=== PATIENT | female | born 1930 | race Caucasian/White ===

== ENCOUNTER → 2018-01-06 | Outpatient (CLI) | payer OTHER | LOC: HYPER 09:02 | DX: L89.153 Pressure ulcer of sacral region, stage 3 (principal); L89.622 Pressure ulcer of left heel, stage 2; E03.9 Hypothyroidism, unspecified; E78.00 Pure hypercholesterolemia, unspecified; I10 Essential (primary) hypertension; K59.00 Constipation, unspecified; G89.11 Acute pain due to trauma; G90.09 Other idiopathic peripheral autonomic neuropathy; L84 Corns and callosities; M06.9 Rheumatoid arthritis, unspecified; N39.0 Urinary tract infection, site not specified; F03.90 Unspecified dementia, unspecified severity, without behavioral disturbance, psychotic disturbance, mood disturbance, and anxiety ==

== ENCOUNTER → 2018-01-20 | Outpatient (CLI) | payer OTHER | LOC: HYPER 06:51 | DX: L89.153 Pressure ulcer of sacral region, stage 3 (principal); L89.622 Pressure ulcer of left heel, stage 2; L84 Corns and callosities; E03.9 Hypothyroidism, unspecified; E78.00 Pure hypercholesterolemia, unspecified; G90.09 Other idiopathic peripheral autonomic neuropathy; G89.11 Acute pain due to trauma; I10 Essential (primary) hypertension; M06.9 Rheumatoid arthritis, unspecified; N39.0 Urinary tract infection, site not specified; F03.90 Unspecified dementia, unspecified severity, without behavioral disturbance, psychotic disturbance, mood disturbance, and anxiety ==

== ENCOUNTER → 2018-03-03 | Outpatient (CLI) | payer OTHER | LOC: HYPER 06:56 | DX: L89.153 Pressure ulcer of sacral region, stage 3 (principal); I10 Essential (primary) hypertension; L89.622 Pressure ulcer of left heel, stage 2; N39.0 Urinary tract infection, site not specified; L84 Corns and callosities; E78.00 Pure hypercholesterolemia, unspecified; E03.9 Hypothyroidism, unspecified; K59.00 Constipation, unspecified; G89.11 Acute pain due to trauma; G90.09 Other idiopathic peripheral autonomic neuropathy; F03.90 Unspecified dementia, unspecified severity, without behavioral disturbance, psychotic disturbance, mood disturbance, and anxiety ==

== ENCOUNTER → 2018-03-31 | Outpatient (CLI) | payer OTHER | LOC: HYPER 06:51 | DX: L89.153 Pressure ulcer of sacral region, stage 3 (principal); L89.622 Pressure ulcer of left heel, stage 2; L84 Corns and callosities; E03.9 Hypothyroidism, unspecified; E78.00 Pure hypercholesterolemia, unspecified; G89.11 Acute pain due to trauma; G90.09 Other idiopathic peripheral autonomic neuropathy; I10 Essential (primary) hypertension; K59.00 Constipation, unspecified; N39.0 Urinary tract infection, site not specified; M06.9 Rheumatoid arthritis, unspecified; F03.90 Unspecified dementia, unspecified severity, without behavioral disturbance, psychotic disturbance, mood disturbance, and anxiety ==

== ENCOUNTER → 2018-04-21 | Outpatient (CLI) | payer OTHER | LOC: HYPER 06:42 | DX: L89.153 Pressure ulcer of sacral region, stage 3 (principal); L89.622 Pressure ulcer of left heel, stage 2; L84 Corns and callosities; E03.9 Hypothyroidism, unspecified; E78.00 Pure hypercholesterolemia, unspecified; G89.11 Acute pain due to trauma; G90.09 Other idiopathic peripheral autonomic neuropathy; I10 Essential (primary) hypertension; K59.00 Constipation, unspecified; M06.9 Rheumatoid arthritis, unspecified; N39.0 Urinary tract infection, site not specified; F03.90 Unspecified dementia, unspecified severity, without behavioral disturbance, psychotic disturbance, mood disturbance, and anxiety ==

== ENCOUNTER → 2018-05-14 | Outpatient (CLI) | payer OTHER | LOC: HYPER 07:09 | DX: L89.153 Pressure ulcer of sacral region, stage 3 (principal); L89.622 Pressure ulcer of left heel, stage 2; E03.9 Hypothyroidism, unspecified; E78.00 Pure hypercholesterolemia, unspecified; G89.11 Acute pain due to trauma; G90.09 Other idiopathic peripheral autonomic neuropathy; I10 Essential (primary) hypertension; K59.00 Constipation, unspecified; M06.9 Rheumatoid arthritis, unspecified; N39.0 Urinary tract infection, site not specified; F03.90 Unspecified dementia, unspecified severity, without behavioral disturbance, psychotic disturbance, mood disturbance, and anxiety ==

== ENCOUNTER → 2018-06-25 | Outpatient (CLI) | payer OTHER | LOC: HYPER 07:05 | DX: L89.153 Pressure ulcer of sacral region, stage 3 (principal); E78.00 Pure hypercholesterolemia, unspecified; G89.11 Acute pain due to trauma; G90.09 Other idiopathic peripheral autonomic neuropathy; E03.9 Hypothyroidism, unspecified; N39.0 Urinary tract infection, site not specified; R54 Age-related physical debility; K59.00 Constipation, unspecified; G62.9 Polyneuropathy, unspecified ==

== ENCOUNTER → 2018-07-09 | Outpatient (CLI) | payer OTHER | LOC: HYPER 06:54 | DX: L89.153 Pressure ulcer of sacral region, stage 3 (principal); E03.9 Hypothyroidism, unspecified; E78.00 Pure hypercholesterolemia, unspecified; G89.11 Acute pain due to trauma; G90.09 Other idiopathic peripheral autonomic neuropathy; I10 Essential (primary) hypertension; K59.00 Constipation, unspecified; M06.9 Rheumatoid arthritis, unspecified; N39.0 Urinary tract infection, site not specified; F03.90 Unspecified dementia, unspecified severity, without behavioral disturbance, psychotic disturbance, mood disturbance, and anxiety ==

== ENCOUNTER → 2018-07-30 | Outpatient (CLI) | payer OTHER | LOC: HYPER 06:45 | DX: L89.153 Pressure ulcer of sacral region, stage 3 (principal); E03.9 Hypothyroidism, unspecified; N39.0 Urinary tract infection, site not specified; K59.00 Constipation, unspecified; E78.00 Pure hypercholesterolemia, unspecified; R05 Cough; G89.11 Acute pain due to trauma; G90.09 Other idiopathic peripheral autonomic neuropathy; F03.90 Unspecified dementia, unspecified severity, without behavioral disturbance, psychotic disturbance, mood disturbance, and anxiety ==

== ENCOUNTER → 2018-08-13 | Outpatient (CLI) | payer OTHER | LOC: HYPER 06:51 | DX: L89.153 Pressure ulcer of sacral region, stage 3 (principal); E03.9 Hypothyroidism, unspecified; E78.00 Pure hypercholesterolemia, unspecified; G89.11 Acute pain due to trauma; G90.09 Other idiopathic peripheral autonomic neuropathy; I10 Essential (primary) hypertension; N39.0 Urinary tract infection, site not specified; K59.00 Constipation, unspecified; M06.9 Rheumatoid arthritis, unspecified; F03.90 Unspecified dementia, unspecified severity, without behavioral disturbance, psychotic disturbance, mood disturbance, and anxiety ==

== ENCOUNTER → 2018-08-27 | Outpatient (CLI) | payer OTHER | LOC: HYPER 06:53 | DX: L89.153 Pressure ulcer of sacral region, stage 3 (principal); E78.00 Pure hypercholesterolemia, unspecified; E03.9 Hypothyroidism, unspecified; G89.11 Acute pain due to trauma; G90.09 Other idiopathic peripheral autonomic neuropathy; I10 Essential (primary) hypertension; N39.0 Urinary tract infection, site not specified; K59.00 Constipation, unspecified; M06.9 Rheumatoid arthritis, unspecified; F03.90 Unspecified dementia, unspecified severity, without behavioral disturbance, psychotic disturbance, mood disturbance, and anxiety; Z98.49 Cataract extraction status, unspecified eye ==

== ENCOUNTER → 2018-10-13 | Outpatient (CLI) | payer OTHER | LOC: HYPER 09-10 08:55 | DX: L89.153 Pressure ulcer of sacral region, stage 3 (principal); I10 Essential (primary) hypertension; E78.00 Pure hypercholesterolemia, unspecified; E03.9 Hypothyroidism, unspecified; N39.0 Urinary tract infection, site not specified; K59.00 Constipation, unspecified; G89.11 Acute pain due to trauma; G90.09 Other idiopathic peripheral autonomic neuropathy; G62.9 Polyneuropathy, unspecified; F03.90 Unspecified dementia, unspecified severity, without behavioral disturbance, psychotic disturbance, mood disturbance, and anxiety ==

== ENCOUNTER → 2018-12-22 | Outpatient (CLI) | payer OTHER | LOC: HYPER 07:51 | DX: L89.154 Pressure ulcer of sacral region, stage 4 (principal); G89.11 Acute pain due to trauma; G90.09 Other idiopathic peripheral autonomic neuropathy; E03.9 Hypothyroidism, unspecified; E78.00 Pure hypercholesterolemia, unspecified; I10 Essential (primary) hypertension; N39.0 Urinary tract infection, site not specified; R15.9 Full incontinence of feces; K59.00 Constipation, unspecified; M06.9 Rheumatoid arthritis, unspecified; F03.90 Unspecified dementia, unspecified severity, without behavioral disturbance, psychotic disturbance, mood disturbance, and anxiety ==